=== PATIENT | female | born 1995 | race Caucasian/White ===

== ENCOUNTER 2017-09-10 21:52 | Emergency (ER) | payer SELFPAY | END 2017-09-10 23:30 | disposition left against medical advice (07) | LOC: E/R 21:52 | DX: Z53.21 Procedure and treatment not carried out due to patient leaving prior to being seen by health care provider (principal) ==

== ENCOUNTER 2019-02-12 09:04 | Day surgery (SDC) | payer BC ==
[2019-02-12] MEDS ORDERED: PROPOFOL 100 ML (12:17)
[2019-02-12] MEDS ORDERED: CEFAZOLIN 1 GM INJ (12:28)
[2019-02-12] MEDS ORDERED: DEXAMETHASONE 4 MG/ML 5 ML INJ (12:28)
[2019-02-12] MEDS ORDERED: LIDOCAINE 2% (SDV) 5 ML INJ (12:28)
[2019-02-12] MEDS ORDERED: SUCCINYLCHOLINE CHLORIDE 100 MG/5 ML SYG IV (12:28)
[2019-02-12] MEDS ORDERED: ONDANSETRON 4 MG INJ (12:28)
[2019-02-12] MEDS ORDERED: morphine 10 MG INJ (12:31)
[2019-02-12] MEDS: LIDOCAINE 1%/EPI 30 ML INJ (12:54)
[2019-02-12] MEDS: THROMBIN 5000 UNIT (RECOTHROM) VIAL (14:54)
[2019-02-12] MEDS ORDERED: PROPOFOL 200 ML (14:56)
[2019-02-12] MEDS ORDERED: DIPHENHYDRAMINE 50 MG INJ IV (15:00)
[2019-02-12] MEDS ORDERED: EPHEDrine 25 MG/5 ML SYG IV (15:00)
[2019-02-12] MEDS ORDERED: HYDROmorphONE 1 MG/5 ML IV SYRINGE IV ×3 (15:00)
[2019-02-12] MEDS ORDERED: hydrALAzine 20 MG INJ IV (15:00)
[2019-02-12] MEDS ORDERED: OXYCODONE/ACETAMINOPHEN (5/325) TAB PO (15:00)
[2019-02-12] MEDS ORDERED: MIDAZOLAM 1 MG/ML 2 ML INJ IV (15:00)
[2019-02-12] MEDS ORDERED: FENTAnyl 50 MCG/ML VIAL IV ×3 (15:00)
[2019-02-12] MEDS ORDERED: METOCLOPRAMIDE 10 MG INJ IV (15:00)
[2019-02-12] MEDS ORDERED: ALBUTEROL 0.083% (NEB) 2.5 MG/3 ML AMP HHN (15:00)
[2019-02-12] MEDS ORDERED: LABETALOL HCL 20MG INJ IV (15:00)
[2019-02-12] MEDS: MEPERIDINE 25 MG INJ IV (15:29)
[2019-02-12] MEDS: ONDANSETRON 4 MG INJ IV (15:29)
[2019-02-12] MEDS: OXYCODONE/ACETAMINOPHEN (5/325) TAB PO (16:57)
== END 2019-02-12 18:25 | disposition home or self-care (01) ==
LOC: SDS 09:04
DX: C73 Malignant neoplasm of thyroid gland (principal); C77.0 Secondary and unspecified malignant neoplasm of lymph nodes of head, face and neck
CPT/HCPCS: 60252; 88307